=== PATIENT | male | born 1955 | race Caucasian/White ===

== ENCOUNTER 2019-12-16 13:50 | Emergency (ER) | payer BC, SELFPAY ==
--- NOTE | 2019-12-16 14:05 | ED.SKABFB ---
HPI - Skin/Abscess/Foreign Bdy General Chief complaint: Skin/Abscess/Foreign Body Stated complaint: rash Time Seen by Provider: 12/16/19 14:10 Source: patient and RN notes reviewed History of Present Illness HPI narrative: Patient is a 64-year-old male that presents the urgent care with complaints of a rash. Patient states he has had it for approximately 2 years or more and his PCP told him to start washing with Sels[place] Blue. Patient states that he wants a second opinion . Reports of the rash being on the torso, upper arms and the groin area. Patient also reports a history of hypertension and has not been taking his medication for approximately 7 months, because he did not want to . Patient denies any other acute complaints. States that the rash is itchy sometimes . Patient states that he has had areas come and go and it does seem to be affected by his diet. No acute distress noted. Patient denies of any chest pain but states he has had recurrent headaches for some time. Patient aware of the plan of care. Related Data Home Medications Medication Instructions Recorded Confirmed amlodipine 12/16/19 Allergies Allergy/AdvReac Type Severity Reaction Status Date / Time No Known Allergies Allergy Unverified 06/28/11 05:13 Review of Systems Review of Systems: Narrative: CONSTITUTIONAL: Denies fever, chills, or sweats. EYES: Denies visual changes, redness, or discharge. ENT: Denies rhinorrhea, congestion, sore throat, or otalgia. CARDIOVASCULAR: Denies chest pain, palpitations, or edema. RESPIRATORY: Denies cough or dyspnea. GASTROINTESTINAL: Denies abdominal pain, nausea, vomiting, or diarrhea. GENITOURINARY: Denies dysuria or hematuria. SKIN: Reports of a rash to the torso, upper arms and groin MUSCULOSKELETAL: Denies back pain, joint pain, or myalgia. NEUROLOGIC: Denies headache, numbness, or weakness. All other systems reviewed are negative, except as documented in HPI. [facility] Family History Family History (Updated 11/20/16 @ 23:56 by DOCTOR UNKNOWN) Father Family history of lung cancer, Onset Age: 70 Patient's father is Mother Family history of heart disease in male family member before age 55, Onset Age: 55 Patient's mother is Sibling Diabetes mellitus Other Family history of cardiovascular disease Social History Social History Smoking status: Never smoker Alcohol intake: never Comments At the time of my signature, I reviewed and agree with the nursing past medical, surgical, social, and family history. There is no relevant family history pertinent to the patient complaint. Exam Narrative: Exam Narrative: GENERAL: This is a well-nourished, well-developed patient, in no apparent distress. HEAD: normocephalic, atraumatic. EYES: PERRL. Sclera clear/white. Vision is grossly intact. EARS: External ears normal NOSE: External nose normal with no obvious nasal discharge THROAT: Mucous membranes moist NECK: Neck supple CARDIOVASCULAR: Regular rate and rhythm without murmurs, gallops, or rubs. RESPIRATORY: Clear to auscultation. Breath sounds equal bilaterally. No wheezes, rales, or rhonchi. SKIN: Diffuse moderate plaque psoriasis noted to the torso, bilateral upper arms, and mild case to the groin. NEURO: awake, alert, and oriented to person, place and time. There were no obvious focal neurologic abnormalities. EXTREMITIES: No clubbing, cyanosis, or edema. Course Vital Signs Vital signs: Vital Signs Temperature 98.1 F 12/16/19 14:12 Pulse Rate 52 L 12/16/19 14:12 Respiratory Rate 18 12/16/19 14:12 Pulse Oximetry 98 12/16/19 14:12 Temperature 98.1 F 12/16/19 14:12 Pulse Rate 52 L 12/16/19 14:12 Respiratory Rate 18 12/16/19 14:12 Pulse Oximetry 98 12/16/19 14:12 Reviewed-patient is informed that they may have pre-hypertension or hypertension based on a blood pressure reading in the department. I recommend the patient
[2019-12-16 14:12] VITALS: BP 215/85; PULSE 52; RESP 18; TEMP 36.7; O2SAT 98
--- NOTE | 2019-12-16 14:38 | PC.NURSE ---
cyber analyst requested [facility] to be called for medication dosage. pt unsure. has not taken for about 6-7 mths.
--- NOTE | 2019-12-16 14:44 | PC.NURSE ---
at 1440 this rn called [facility] pharmacy to verify medications. [facility] had only allopurinal and citalopram listed and back dated 02/2018. 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
--- NOTE | 2019-12-16 14:49 | PC.NURSE ---
[facility] pharmacy called and stated no pt or medication hx found on [facility] ware server.
== END 2019-12-16 14:51 | disposition left against medical advice (07) ==
PROVIDERS: Emergency Provider Nurse Practitioner Family
DX: L40.0 Psoriasis vulgaris (principal); I10 Essential (primary) hypertension
CPT/HCPCS: 99213; G0463